=== PATIENT | female | born 1950 | race Caucasian/White ===

== ENCOUNTER 2021-11-03 20:50 | Emergency (ER) | payer MEDICARE, OTHER, SELFPAY ==
[2021-11-03 20:52] VITALS: BP 101/70; PULSE 81; RESP 16; TEMP 36.6; O2SAT 97; BMI 25.0
--- NOTE | 2021-11-03 22:46 | EDS_ITS ---
HPI History of Present Illness Chief Complaint: General Illness Narrative Narrative: With past medical history of hypertension, visiting from [place], presents with COVID-19 symptoms. She states her symptoms began on Wednesday, 2 days ago. She did a home test which was positive. She complains of fever, shortness of breath, sore throat, and rhinorrhea. She also has body aches and fatigue. She denies any GI symptoms. She was immunized with Moderna, but could not get a booster because of an allergy to the immunization. [facility] Medical History High cholesterol Hypertension Allergy/AdvReac Type Severity Reaction Status Date / Time No Known Allergies Allergy Verified 11/03/21 20:55 Social History Smoking Status: Never smoker ROS ROS ED ROS Narrative Constitutional: Positive fever, no chills. HEENT: Raw feeling sore throat. No neck pain. No loss of vision. Positive rhinorrhea. Cardiovascular: No chest pain. No palpitations. No pedal edema. Respiratory: Positive cough, mild shortness of breath. Abdominal: No abdominal pain. No nausea. No vomiting. Genitourinary: No dysuria. No hematuria. Musculoskeletal: Diffuse myalgias. No arthralgias. Neurologic: No headaches. No dizziness. No lightheadedness. Skin: No rash. No change in color. Psychiatric: No depression. No anxiety. EXAM Physical Exam Narrative Exam Narrative: Afebrile. Vital signs noted. HEENT: Normocephalic. Atraumatic. PERRL, EOMI. Neck soft and supple. No point tenderness or step off. Cardiovascular: Regular rate and rhythm. No murmurs, rubs, or gallops appreci ated. Respiratory: No tachypnea. Lungs clear to auscultation bilaterally. Gastrointestinal: Abdomen soft, nontender, with normoactive bowel sounds. No rebound or guarding. Neurological: Awake. Alert. Nonfocal, nonlateralizing. Skin: No rash. Normal color. No pallor. Musculoskeletal: No pedal edema. Full range of motion extremities. Const Vital Signs: 11/03/21 20:52 11/03/21 22:37 11/03/21 22:51 Temperature 97.9 F Temperature Source Temporal Pulse Rate 81 76 Respiratory Rate 16 16 Respiratory Pattern Normal Blood Pressure 101/70 97/63 Blood Pressure Mean 80 74 Pulse Ox 97 99 Oxygen Delivery Method Room Air Room Air MDM MDM MDM Narrative Medical decision making narrative: She is afebrile here. She was instructed to continue [id number] antipyretics and analgesics. Pulse ox is 97% on room air. I will obtain a 1 view chest x-ray. As she qualifies for monoclonal antibodies with a BMI of 25, and past medical history of hypertension, she was swabbed for COVID-19 for a positive test here. She is Covid positive. As this is day 3, she will be referred for monoclonal antibodies. Her chest x-ray shows no acute cardiopulmonary disease. The following information was communicated to the patient or caregiver: Monoclonal antibody infusion is not an FDA approved drug. The FDA has authorized the emergency use of monoclonal antibody therapy. The patient had the option to refuse or accept treatment with monoclonal antibody therapy. The patient was informed that the number of people treated with monoclonal antibody therapy at this time is small. The potential benefits and the potential risks of monoclonal antibody therapy are not fully known. Potential benefits of monoclonal antibody include a reduced risk of progressing to severe COVID-19 infection. Potential risks or side effects of monoclonal antibody therapy include allergic reactions, side effects from injection including brief pain, bleeding, bruising of the skin, soreness, swelling, possible infection at the infusion site. The patient stated understanding of this information communicated and wished to proceed with monoclonal antibody infusion therapy. The patient is appropriate for the Monoclonal Antibody Infusion. The patient states understanding of this information communicated and wishes to proceed with monoclonal antibody infusion therapy. Patient agrees to receive either Balanivimab/Etesvimab or Casirivimab/Imdevimab upon availability. Of note, she states that her blood pressure usually runs either very high or very low. She will be symptomatic. She has a pulse oximeter on when she can monitor her pulse ox. Currently it is 100% on room air without evidence of hypoxia. I feel she can be discharged safely home with follow-up. Return instructions to the emergency department were reviewed. Disposition is discharged home in stable condition. Lab Data Attestation: I reviewed the patient's lab results. Radiography Diagnostic Testing: Clinical Impression(s) from Imaging Studies Chest X-Ray 11/03/21 22:55 IMPRESSION: No acute cardiopulmonary disease. Electronically Signed: Grupo Chapman MD at 23:24 EST , Service support , Discharge Plan Triage Chief Complaint: General Illness ED Provider: Niko Rojas Dx/Rx/DC Orders Clinical Impression: COVID-19 Instructions: Coronavirus Disease 2019 (COVID-19): Caring for Yourself or Others Stand Alone Forms: Monoclonal Antibody Referral Primary Care Provider: Care Physician,No Primary Referrals: Care Physician,No Primary [Primary Care Provider] - Disposition Disposition: Home, Self Care
[2021-11-03 22:51] VITALS: BP 97/63; PULSE 76; RESP 16; O2SAT 99
--- NOTE | 2021-11-03 22:55 | RAD_ITS ---
STUDY: X-RAY CHEST REASON FOR EXAM: Female, 71 years old. shortness of breath TECHNIQUE: Single AP portable view of the chest. COMPARISON: None. FINDINGS: No focal infiltrates or effusions. No pneumothorax. Normal size heart. Normal mediastinum and ashtyn. Normal visualized pulmonary arteries. Normal visualized aortic arch and descending thoracic aorta. Normal visualized thoracic spine. Normal visualized ribs, clavicles, and shoulders. There is no demonstrated abnormality of the visualized soft tissue structures of the upper abdomen. RAD/Chest 1 View (Portable) IMPRESSION: No acute cardiopulmonary disease. Electronically Signed: Grupo Chapman MD at 23:24 EST , Service support ,
[2021-11-03 23:41] VITALS: RESP 17; O2SAT 99
== END 2021-11-04 00:04 | disposition home or self-care (01) ==
PROVIDERS: Emergency Provider Emergency Medicine
DX: U07.1 COVID-19 (principal); I10 Essential (primary) hypertension
CPT/HCPCS: 71045; 87426; 99282

== ENCOUNTER 2021-11-06 11:25 | Outpatient (CLI) | payer MEDICARE, OTHER, SELFPAY ==
[2021-11-06 11:45] VITALS: BP 123/87; PULSE 72; RESP 16; TEMP 36.8; O2SAT 100; BMI 24.0
[2021-11-06] MEDS: 0.9% Saline Lock 10 ML Syringe IV (11:45)
[2021-11-06 12:17] VITALS: BP 107/73; PULSE 65; RESP 16; TEMP 36.6; O2SAT 100
[2021-11-06 13:10] VITALS: BP 107/71; PULSE 64; RESP 16; TEMP 36.6; O2SAT 100
== END 2021-11-06 13:17 | disposition home or self-care (01) ==
LOC: MS3OUT 11:26 → MS3 11:26
PROVIDERS: Referring Provider Emergency Medicine; Visit Provider Emergency Medicine
DX: Z23 Encounter for immunization (principal); U07.1 COVID-19
CPT/HCPCS: J7050; M0245; Q0245; A4216